=== PATIENT | female | born 1980 | race Hispanic/Latino ===

== ENCOUNTER → 2020-09-17 | Outpatient (CLI) | payer OTHER, MEDICAID | END | disposition home or self-care (01) | LOC: RAH 13:32 | PROVIDERS: ATTEND Internal Medicine Hematology & Oncology | DX: I82.601 Acute embolism and thrombosis of unspecified veins of right upper extremity (principal); I10 Essential (primary) hypertension; M79.601 Pain in right arm; C50.811 Malignant neoplasm of overlapping sites of right female breast; G62.9 Polyneuropathy, unspecified; G47.00 Insomnia, unspecified; Z85.3 Personal history of malignant neoplasm of breast | CPT/HCPCS: 93971 ==